=== PATIENT | female | born 1980 | race Caucasian/White ===

== ENCOUNTER 2016-06-28 15:26 | Emergency (ER) | payer BC ==
[~2016-06-28] VITALS: Ht 162.6 cm; Wt 60.2 kg
[~2016-06-28 15:26] MED LIST: PRENTAB26 PO; SYN50 PO
[2016-06-28 15:33] VITALS: TEMP 36.7; Ht 162.6 cm; Wt 60.2 kg
[2016-06-28] MEDS ORDERED: FAMOTIDINE IV INJ 20 MG in DEXTROSE 5% 100ML 100 ML IV STA (15:52)
[2016-06-28] MEDS ORDERED: DiphenhydrAMINE HCL 50 MG/ML VIAL IV STA (15:52)
[2016-06-28] MEDS ORDERED: METHYLPREDNISOLONE 125 MG VIAL IV STA (15:52)
[2016-06-28] MEDS ORDERED: FAMOTIDINE 20MG/102 ML D5W ONE (15:59)
[2016-06-28] MEDS ORDERED: LEVO100T7 PO (16:12)
[2016-06-28] MEDS ORDERED: SODIUM CHLORIDE 0.9% 1000ML 1,000 ML IV STA (17:18)
[2016-06-28 17:27] LABS: BASO % 0.6 %; BASO ABS # 0.02 K/uL (0-0.2); COMPLETE YES; EOS % 7.6 %; HEMATOCRIT 42.7 % (37-47); LYMPH % 28.3 %; LYMPH ABS # 0.89 K/uL (1.2-3.4); MEAN CORPUSCULAR HEMOGLOBIN 31.5 pg (25-34); MEAN CORPUSCULAR HGB CONC 34.2 g/dl (32-36); MEAN PLATELET VOLUME 9.5 fL (7.4-10.4); MONO % 7.3 %; NEUT % 55.2 %; PLATELET COUNT 208 K/uL (130-400); RED BLOOD COUNT 4.64 M/uL (4.2-5.4); WHITE BLOOD COUNT 3.15 K/uL (4.8-10.8)
[2016-06-28 17:35] LABS: ALT/SGPT 32 U/L (12-78); AST/SGOT 19 U/L (15-37); BLOOD UREA NITROGEN 6 mg/dl (7-18); BUN/CREATININE RATIO 8.1 (10-20); CALCIUM 8.5 mg/dl (8.5-10.1); CARBON DIOXIDE 30 mmol/L (21-32); CHLORIDE 105 mmol/L (98-107); CREATININE 0.78 mg/dl (0.60-1.20); GLUCOSE 92 mg/dl (70-99); POTASSIUM 3.9 mmol/L (3.5-5.1); SODIUM 140 mmol/L (136-145)
[2016-06-28 17:38] LABS: ALKALINE PHOSPHATASE 72 U/L (45-117)
--- NOTE | 2016-06-28 17:54 | DIAGNOSTIC IMAGING REPORT ---
TWO VIEW CHEST CLINICAL HISTORY: Cough. FINDINGS: PA and lateral chest radiographs are obtained. No prior studies are available for comparison at the time of dictation. The cardiomediastinal silhouette is unremarkable. The lungs and pleural spaces are clear. There is no pneumothorax. The bony thorax appears intact. There is nonspecific deformity of the right humeral shaft. IMPRESSION: No active disease in the chest. Electronically signed by: Juno Mariscal M.D. 06/28/2016 5:53 PM Dictated Date/Time: 06/28/2016 5:52 PM
[2016-06-28] MEDS ORDERED: PRED20TA PO (18:07)
--- NOTE | 2016-06-28 18:18 | EMERGENCY ROOM VISIT NOTE ---
History Report prepared by Olga: Geovanna Bell Under the Supervision of: Dr. Mac Mcadams M.D. First contact with patient: 15:38 Chief Complaint: ALLERGIC REACTION Stated Complaint: ALLERGIC REACTION Nursing Triage Summary: Pt states she thought she had the flu over the weekend. Patient woke up this morning with a rash, took one zyrtec, the Dr told me to take through. Patient states "now my face has blown up". Taking Bactrim for UTI History of Present Illness The patient is a 35 year old female who presents to the Emergency Room with complaints of a worsening rash starting this morning. She has been sick with cold symptoms for the past week. She had a sore throat. She developed body aches and chills 2 days ago. Last night she had a tactile fever. She took ibuprofen which helped. Yesterday her face also began to swell up. It worsened this morning and she started developing a rash on her face. She went to the doctor's office who said that she might have a virus combined with an allergic reaction to Bactrim. She started a 10 day course of Bactrim 9 days ago for UTI. Today would have been her last dose, but she was told to stop taking it by her doctor. She was told by her doctor to take Zyrtec. Since her visit this morning. the rash has become increasingly red and has spread down to her neck, body, and extremities. Her throat feels swollen and her tongue feels heavy. Her doctor instructed her to go to the emergency department. She is able to breathe normally. She was not feeling uncomfortable this morning, but the rash is becoming very itchy and hot throughout the day. She still has body aches. She denies any urinary symptoms. She denies any environmental allergies. She has not tried any new soaps, detergents, cosmetics, or clothes. She denies any recent tick bites. She has had cats for a long time. She has an allergy to penicillin, but the rash was not as swollen and red as her current rash. She has a history of bronchitis and hypothyroidism. Source of History: patient Onset: this morning Position: other (skin) Quality: other (rash) Timing: worsening Associated Symptoms: + chills, + fevers, + sorethroat, No urinary symptoms Note: Pt reports body aches, face swelling, throat swelling, tongue heaviness. Review of Systems See HPI for pertinent positives & negatives. A total of 10 systems reviewed and were otherwise negative. Past Medical & Surgical Medical Problems: (1) Bronchitis (2) Hypothyroidism Family History Diabetes mellitus Heart disease Hypertension Kidney disease Kidney stones Seizures Social History Smoking Status: Never Smoker Alcohol Use: none Marital Status: Housing Status: lives with family Occupation Status: employed Current/Historical Medications Scheduled Levothyroxine Sodium (Levothyroxine Sodium), 100 MCG PO DAILY Multivit/Min/Iron/Fol Ac/Pren ( Vitamin), 1 TAB PO DAILY Prednisone (Prednisone), 3 TAB PO DAILY Allergies Coded Allergies: Penicillin G (Unverified Allergy, Intermediate, HIVES, 06/17/10) Sulfamethoxazole w/Trimethoprim (Verified Allergy, Intermediate, Rash and hives, 06/28/16) Physical Exam Vital Signs Date Time Temp Pulse Resp B/P Pulse Ox O2 Delivery O2 Flow Rate FiO2 06/28/16 17:14 97 20 134/72 98 Room Air 06/28/16 16:32 113 06/28/16 15:33 36.7 112 20 134/73 98 Room Air 06/28/16 15:33 98 Room Air Physical Exam Constitutional: Vital signs reviewed. Eyes: Pupils are equal round reactive to light. Conjunctiva are noninjected. ENT: Mild erythema to the posterior oropharynx. No swelling to the tongue or uvula. Mucous membranes are moist. Neck supple without meningeal signs. Respiratory: Clear to auscultation bilaterally. Breath sounds are equal bilaterally. No wheezing or stridor. Cardiovascular: Regular rate and rhythm. No rubs or gallops. GI: Soft, nondistended and nontender. Bowel sounds are present. Musculoskeletal: No peripheral edema. No lower extremity tenderness. Integumentary: Diffuse welts throughout the trunk, neck, face, and extremities with confluence of the rash over the back. No sign of herald patch. No lesions on the palms or soles. No vesicles or bullae. No petechiae or purpura. Rash is easily blanchable. Neurological: The patient is awake and alert. No focal deficits. Psychiatric: Normal affect. Medical Decision & Procedures ER Provider Diagnostic Interpretation: X-ray results as stated below per interpretation by me and the radiologist: TWO VIEW CHEST CLINICAL HISTORY: Cough. FINDINGS: PA and lateral chest radiographs are obtained. No prior studies are available for comparison at the time of dictation. The cardiomediastinal silhouette is unremarkable. The lungs and pleural spaces are clear. There is no pneumothorax. The bony thorax appears intact. There is nonspecific deformity of the right humeral shaft. IMPRESSION: No active disease in the chest. Electronically signed by: Juno Mariscal M.D. 06/28/2016 5:53 PM Dictated Date/Time: 06/28/2016 5:52 PM Laboratory Results 06/28/16 16:10 Red Blood Count 4.64, Mean Corpuscular Volume 92.0, Mean Corpuscular Hemoglobin 31.5, Mean Corpuscular Hemoglobin Concent 34.2, Mean Platelet Volume 9.5, Neutrophils (%) (Auto) 55.2, Lymphocytes (%) (Auto) 28.3, Monocytes (%) (Auto) 7.3, Eosinophils (%) (Auto) 7.6, Basophils (%) (Auto) 0.6, Neutrophils # (Auto) 1.74, Lymphocytes # (Auto) 0.89, Monocytes # (Auto) 0.23, Eosinophils # (Auto) 0.24, Basophils # (Auto) 0.02 06/28/16 16:10 Test 06/28/16 16:10 White Blood Count 3.15 K/uL (4.8-10.8) Red Blood Count 4.64 M/uL (4.2-5.4) Hemoglobin 14.6 g/dL (12.0-16.0) Hematocrit 42.7 % (37-47) Mean Corpuscular Volume 92.0 fL (80-100) Mean Corpuscular Hemoglobin 31.5 pg (25-34) Mean Corpuscular Hemoglobin Concent 34.2 g/dl (32-36) Platelet Count 208 K/uL (130-400) Mean Platelet Volume 9.5 fL (7.4-10.4) Neutrophils (%) (Auto) 55.2 % Lymphocytes (%) (Auto) 28.3 % Monocytes (%) (Auto) 7.3 % Eosinophils (%) (Auto) 7.6 % Basophils (%) (Auto) 0.6 % Neutrophils # (Auto) 1.74 K/uL (1.4-6.5) Lymphocytes # (Auto) 0.89 K/uL (1.2-3.4) Monocytes # (Auto) 0.23 K/uL (0.11-0.59) Eosinophils # (Auto) 0.24 K/uL (0-0.5) Basophils # (Auto) 0.02 K/uL (0-0.2) RDW Standard Deviation 42.7 fL (36.4-46.3) RDW Coefficient of Variation 12.7 % (11.5-14.5) Immature Granulocyte % (Auto) 1.0 % Immature Granulocyte # (Auto) 0.03 K/uL (0.00-0.02) Anion Gap 5.0 mmol/L (3-11) Est Creatinine Clear Calc Drug Dose 85.3 ml/min Estimated GFR () 112.6 Estimated GFR (Non- 97.1 BUN/Creatinine Ratio 8.1 (10-20) Calcium Level 8.5 mg/dl (8.5-10.1) Total Bilirubin 0.3 mg/dl (0.2-1) Direct Bilirubin < 0.1 mg/dl (0-0.2) Aspartate Amino Transf (AST/SGOT) 19 U/L (15-37) Alanine Aminotransferase (ALT/SGPT) 32 U/L (12-78) Alkaline Phosphatase 72 U/L (45-117) Total Protein 7.6 gm/dl (6.4-8.2) Albumin 3.8 gm/dl (3.4-5.0) Influenza Type A Antigen Neg for Influ A (NEG) Influenza Type B Antigen Neg for Influ B (NEG) Anti-Streptolysin O Antibody Screen NEG IU/ml (<200 IU) Laboratory results as reviewed by me. Medications Administered Medications (Trade) Dose Ordered Sig/Vicenta Route Start Time Stop Time Status Last Admin Dose Admin Methylprednisolone Sodium Succinate (Solu-Medrol IV) 125 mg NOW STAT IV 06/28/16 15:52 06/28/16 15:54 DC 06/28/16 16:14 125 MG Diphenhydramine HCl (Benadryl Inj) 50 mg NOW STAT IV 06/28/16 15:52 06/28/16 15:54 DC 06/28/16 16:14 50 MG Famotidine 20 mg 20 mg STK-MED ONCE .ROUTE 06/28/16 15:59 06/28/16 16:00 DC 06/28/16 16:15 20 MG Sodium Chloride (Nss 1000ml) 1,000 ml @ 999 mls/hr Q1H1M STAT IV 06/28/16 17:18 06/28/16 18:18 06/28/16 17:22 999 MLS/HR ED Course 1539: The patient was evaluated in room B8. A complete history and physical exam was performed. 1552: Benadryl Inj 50 mg IV, Solu-Medrol IV 125 mg IV. 1559: Famotidine 20 mg IV. 1716: I reevaluated the patient. She reports worsening body aches at this time. 1718: NSS 1000 ml @ 999 mls/hr IV. 1754: I reevaluated the patient. She is awake and alert. She feels less drowsy from the Benadryl. The rash appears slightly improved, but she still complains of itching and burning. I instructed her to take Zyrtec once a day and steroids starting tomorrow. I discussed the results and treatment plan with her. She verbalized understanding and agreement. She will be discharged home. Medical Decision This is a 35-year-old female presents with cold symptoms and a rash. Differential diagnosis includes acute allergic reaction, urticaria, viral exanthem, scarlet fever, viral illness. I did perform a limited focused review of portions of the patient's old chart on the electronic medical record. The patient has had no recent pertinent visits to this hospital. I did evaluate the patient as noted above. She has a diffuse rash throughout her trunk and extremities. It is confluent on her back and appears to be urticarial. It seems most likely that she is allergic to sulfa antibiotics although other causes cannot be excluded without further evaluation by an account services specialist. She has also had flulike symptoms for the past week. IV access was established. I did treat her with IV Solu-Medrol, Benadryl and Pepcid. She was also given normal saline IV. I did order and personally review the patient' s chest x-ray as described above. There is no evidence of pneumonia. I did order and review the patient's blood work as noted in the electronic medical record. Her white blood cell count is slightly low which may be secondary to viral suppression. A strep test was negative and ASO was negative as well. Rapid flu was negative. I did reassess patient. The patient did have some significant drowsiness with the Benadryl but is much more awake and alert now. She complains of burning and itching to her rash but the rash appears to be somewhat better. She has no signs of angioedema. I did feel she was safe for discharge at this time but recommended close follow with her doctor as well as an account services specialist. She was discharged with a prescription for prednisone. She was advised to take Zyrtec only once a day and Benadryl occasionally as needed for itching. She was given return instructions as outlined below and discharged in good condition. Impression Primary Impression: Urticaria Additional Impression: Flu-like symptoms Scribe Attestation The scribe's documentation has been prepared under my direct and personally reviewed by me in its entirety. I confirm that the note above accurately reflects all work, treatment, procedures, and medical decision making performed by me. Departure Information Dispostion Home / Self-Care Prescriptions Prednisone (Prednisone) 20 Mg Tab 3 TAB PO DAILY, #15 TAB FOR 4 DAYS Prov: Mac Mcadams M.D. 06/28/16 Referrals Sydney AndersenD[place] (PCP) Forms HOME CARE DOCUMENTATION FORM, IMPORTANT VISIT INFORMATION Patient Instructions ED Urticaria, [facility] Additional Instructions You have been examined and treated today on an emergency basis only. This is not a substitute for, or an effort to provide, complete comprehensive medical care. It is impossible to recognize and treat all injuries or illnesses in a single emergency department visit. It is therefore important that you follow up closely with your physician. Call as soon as possible for an appointment. Return for worsening symptoms or if you develop fever, vomiting, difficulty breathing, swelling to your tongue, or any other concerning symptoms. Problem Qualifiers
[2016-06-28 18:21] VITALS: BP 127/75; PULSE 90; O2SAT 97
== END 2016-06-28 18:23 | disposition home or self-care (01) ==
LOC: C.EDB 15:27
DX: L50.9 Urticaria, unspecified (principal); R69 Illness, unspecified; E03.9 Hypothyroidism, unspecified; Z83.3 Family history of diabetes mellitus; Z82.49 Family history of ischemic heart disease and other diseases of the circulatory system; Z82.0 Family history of epilepsy and other diseases of the nervous system

== ENCOUNTER → 2016-09-24 | Outpatient (CLI) | payer BC ==
[~2016-09-24] MED LIST changes: +LEVO100T7 PO; +PRED20TA PO; -SYN50 PO
== END | disposition home or self-care (01) ==
LOC: C.RDSM 10:15
PROVIDERS: ATTEND Orthopaedic Surgery Sports Medicine
DX: R52 Pain, unspecified (principal)

== ENCOUNTER → 2016-10-26 | Outpatient (CLI) | payer BC | END | disposition home or self-care (01) | LOC: C.PAPS 14:02 | PROVIDERS: ATTEND Obstetrics & Gynecology | DX: Z01.419 Encounter for gynecological examination (general) (routine) without abnormal findings (principal) ==